=== PATIENT | female | born 1970 | race Caucasian/White ===

== ENCOUNTER 2023-02-16 11:13 | Day surgery (SDC) | payer SELFPAY ==
[~2023-02-16 11:13] MED LIST: Bupivacaine 0.5% 30 ML SDV ONE; Propofol 200 MG/20 ML SDV ONE; fentaNYL 250 MCG/5 ML SDV ONE; propofoL 50 ML ONE
[2023-02-16] MEDS ORDERED: fentaNYL 50 MCG/ML SDV IVPUSH PRN (11:32)
[2023-02-16] MEDS ORDERED: droPERidol 5 MG/2 ML SDV IVPUSH PRN (11:32)
[2023-02-16] MEDS ORDERED: Morphine 2 MG/ML SYRINGE IVPUSH PRN (11:32)
[2023-02-16] MEDS ORDERED: Ondansetron 4 MG/2 ML SDV IVPUSH PRN (11:32)
[2023-02-16] MEDS ORDERED: HYDROmorphone 1 MG/ML Syringe IVPUSH PRN (11:32)
[2023-02-16] MEDS ORDERED: Naloxone 0.4 MG/ML SDV IVPUSH PRN (11:32)
[2023-02-16] MEDS ORDERED: Metoclopramide 10 MG/2 ML SDV IVPUSH PRN (11:32)
[2023-02-16] MEDS ORDERED: Albuterol 0.083% 2.5 MG/3 ML Neb Soln NEB PRN (11:32)
[2023-02-16] MEDS ORDERED: ceFAZolin 2 GM Vial ONE (11:41)
[2023-02-16] MEDS ORDERED: Water For Injection, Sterile 20 ML ONE (11:41)
[2023-02-16] MEDS ORDERED: Lactated Ringers 1,000 ML IV SCH (11:45)
== END 2023-02-16 13:30 | disposition home or self-care (01) ==
LOC: MW.SDS 11:13
PROVIDERS: ATTEND Surgery
DX: N61.1 Abscess of the breast and nipple (principal); F17.210 Nicotine dependence, cigarettes, uncomplicated; I10 Essential (primary) hypertension
CPT/HCPCS: 19020; 87070; 87075; 87205; J0690; J2704; J3010; J3490; J7120; 00400